=== PATIENT | female | born 1985 ===

== ENCOUNTER 2020-02-18 11:22 | Observation (INO) ==
[2020-02-18] MEDS ORDERED: fentaNYL 250 mcg/5 ml 50 MCG/ML 5 ml VIAL (250 MCG) ONE (14:06)
[2020-02-18] MEDS ORDERED: Rocuronium 50 mg VIAL 10 mg/ml 5 ml VIAL (50 mg) ONE (14:06)
[2020-02-18] MEDS ORDERED: Midazolam 2 mg/2 ml VIAL 1 mg/ml 2 ml VIAL (2 mg) ONE (14:06)
[2020-02-18] MEDS ORDERED: Phenylephrine 40 mcg/mL 10mL (400mcg) SYRINGE ONE (14:10)
[2020-02-18] MEDS ORDERED: Sterile Water for Inj 10 ML ONE (14:10)
[2020-02-18] MEDS ORDERED: Lidocaine 2% PF 5 ML VIAL ONE (14:10)
[2020-02-18] MEDS ORDERED: Dexamethasone IV 4 MG/ML VIAL 1 ml VIAL ONE (14:10)
[2020-02-18] MEDS ORDERED: Propofol 10 MG/ML 20 ML BTL ONE (14:10)
[2020-02-18] MEDS ORDERED: EPHEDrine (Pressors) 50 MG/ML VIAL ONE (14:10)
[2020-02-18] MEDS ORDERED: Bupivacaine 0.25% SDV 30 ML ONE (14:32)
[2020-02-18] MEDS ORDERED: Famotidine IV 10 MG/ML 2 ml VIAL (20 mg) ONE (14:34)
[2020-02-18] MEDS ORDERED: Sodium Citrate/Citric Acid LIQ 15 ML UDC ONE (14:34)
[2020-02-18] MEDS ORDERED: Sodium Citrate/Citric Acid LIQ 15 ML UDC PO ONE (14:37)
[2020-02-18] MEDS ORDERED: Famotidine IV 10 MG/ML 2 ml VIAL (20 mg) IV ONE (14:37)
[2020-02-18] MEDS ORDERED: Buffered Lidocaine 1% SYRIN 1 ml INTRADERM ONE (14:38)
[2020-02-18] MEDS ORDERED: Lactated Ringers 1000 ml BAG 1,000 ML IV SCH (15:00)
[2020-02-18] MEDS ORDERED: Ondansetron 4 mg VIAL 2 MG/ML 2 ml VIAL ONE (15:35)
[2020-02-18] MEDS ORDERED: Sugammadex 500 MG/5 ML 5 ml VIAL IV PUSH ONE (15:35)
[2020-02-18] MEDS ORDERED: Ondansetron 4 mg VIAL 2 MG/ML 2 ml VIAL IV PRN (15:45)
[2020-02-18] MEDS ORDERED: Naloxone 0.4 mg VIAL 0.4 mg/ml 1 ml VIAL IV PRN (15:45)
[2020-02-18] MEDS ORDERED: Acetaminophen IV 1 GM/100ML 1,000 MG/100 ML VIAL IVPB ONE (15:45)
[2020-02-18] MEDS ORDERED: HYDROmorphone 1 MG/1 ML SYRINGE IV PRN (15:45)
[2020-02-18] MEDS ORDERED: fentaNYL 100 mcg/2 ml 50 MCG/ML VIAL IV PRN (15:45)
[2020-02-18] MEDS ORDERED: Acetaminophen IV 1 GM/100ML 100 ML ONE (15:46)
[2020-02-18 18:40] VITALS: BP 122/83
== END 2020-02-18 18:35 | disposition home or self-care (01) ==
LOC: INTOOBSV 13:19 → SSU 13:19
PROVIDERS: ADMIT Surgery; ATTEND Surgery